=== PATIENT | female | born 1960 | race Caucasian/White ===

== ENCOUNTER 2021-08-19 20:15 | Inpatient (IN) | payer SELFPAY ==
[~2021-08-19] VITALS: Ht 157.5 cm; Wt 51.2 kg
[2021-08-19] MEDS ORDERED: IV NORMAL SALINE 1000ML BAG 1,000 ML IV SCH (20:30)
--- NOTE | 2021-08-19 20:34 | PHYS DOC ---
General Adult EDM: Chief Complaint: ANXIETY/PANIC ATTACK HPI: HPI: Patient is a 60 year old female who presents with here with dry mouth, cramping in her hands and feet, dry mouth, tingling in her hands. She was COVID-positive 1 week ago. She states this morning she was feeling fine and had lunch and then started feeling very anxious and having the symptoms. Denies focal weakness, chest pain, shortness of breath, fever, nausea, vomiting, diarrhea, nasal congestion, SI, HI, hallucinations. She states that she has had anxiety in the past but she has never had a panic attack like this. When answering questions the patient will stop midsentence and then asked me what I was asking her again. Review of Systems: Review of Systems: Constitutional: Denies fever or chills. [] Eyes: Denies change in visual acuity. [] HENT: Denies nasal congestion or sore throat. + Dry mouth [] Respiratory: Denies cough or shortness of breath. [] Cardiovascular: Denies chest pain or edema. [] GI: Denies abdominal pain, nausea, vomiting, bloody stools or diarrhea. [] : Denies dysuria. [] Musculoskeletal: Denies back pain or joint pain. + Cramping of hands and feet [] Integument: Denies rash. [] Neurologic: Denies headache, focal weakness or sensory changes. + Tingling in hands [] Endocrine: Denies polyuria or polydipsia. [] Lymphatic: Denies swollen glands. [] Psychiatric: Denies depression or +anxiety. + Panic attack [] Heart Score: C/O Chest Pain: No HEART Score for Chest Pain: HEART Score for Chest Pain Response (Comments) Value History Slighlty/Non-Suspicious 0 ECG Normal 0 Age >45 - < 65 1 Risk Factors 1 or 2 Risk Factors 1 Troponin < Normal Limit 0 Total 2 Risk Factors: Risk Factors: DM, Current or recent (<one month) smoker, HTN, HLP, family history of CAD, obesity. Risk Scores: Score 0 - 3: 2.5% MACE over next 6 weeks - Discharge Home Score 4 - 6: 20.3% MACE over next 6 weeks - Admit for Clinical Observation Score 7 - 10: 72.7% MACE over next 6 weeks - Early Invasive Strategies Current Medications: Current Medications Medications (Trade) Dose Ordered Sig/Otto Start Time Stop Time Status Last Admin Dose Admin Lorazepam (Ativan Inj) 0.5 mg 1X ONCE 08/19/21 20:30 08/19/21 20:31 UNV Sodium Chloride 1,000 ml @ 1,000 mls/hr Q1H 08/19/21 20:30 08/19/21 21:29 UNV Physical Exam: PE: Constitutional: Well developed, well nourished, no acute distress, non-toxic appearance. [] HENT: Normocephalic, atraumatic, bilateral external ears normal, oropharynx moist, no oral exudates, nose normal. [] Eyes: PERRLA, EOMI, conjunctiva normal, no discharge. [] Neck: Normal range of motion, no tenderness, supple, no stridor. [] Cardiovascular:Heart rate regular rhythm, no murmur [] Lungs & Thorax: Bilateral breath sounds clear to auscultation [] Abdomen: Bowel sounds normal, soft, no tenderness, no masses, no pulsatile masses. [] Skin: Warm, dry, no erythema, no rash. [] Back: No tenderness, no CVA tenderness. [] Extremities: No tenderness, no cyanosis, no clubbing, ROM intact, no edema. [] Neurologic: Alert and oriented X 3, normal motor function, normal sensory function, no focal deficits noted. [] Psychologic: Affect normal, judgement normal, mood normal. [] EKG: EK and read by Dr. Melendez as sinus rhythm but no STEMI. Radiology/Procedures: Radiology/Procedures: [] Impression: [facility] [address] [place] [address] IMAGING REPORT Signed PATIENT: KEILY MADDOX ACCOUNT: [id number] : 1960 LOCATION: ER AGE: 60 SEX: F EXAM STATUS: REG ER ORD. PHYSICIAN: MINNIE RODRIGUEZ APRN REASON: AMS, NOT FOLLOWING COMMANDS, NOT ANSWERING ALL QUESTIONS PROCEDURE: CT HEAD WO CONTRAST Exam: CT head INDICATION: Altered mental status TECHNIQUE: Sequential axial images through the head were obtained without the administration of IV contrast. Exposure: One or more of the following in the visualized dose reduction techniques were utilized for this examination: 1. Automated exposure control 2. Adjustment of the MA and/or KV according to patient size 3. Use of iterative of reconstructive technique Comparisons: None FINDINGS: No focal parenchymal lesion or hemorrhage is identified. There is no midline sh ift or sulcal effacement. No acute vascular territory infarction is identified. Ribeiro-white distinction is preserved. The ventricular system is within normal limits without compression hydrocephalus. The basal cisterns are well maintained. The visualized portions of the paranasal sinuses and mastoid air cells are well- pneumatized. No acute fractures. IMPRESSION: No acute intracranial abnormality. Electronically signed by: Jerrell Riggs MD (08/19/2021 9:16 PM) [facility] DICTATED and SIGNED BY: JERRELL RIGGS MD DATE: 08/19/212110 Course & Med Decision Making: Course & Med Decision Making Pertinent Labs and Imaging studies reviewed. (See chart for details) See HPI. Alert and oriented x4. Ambulatory steady gait. Speaks in full clear sentences. Will start to answer questions but then it seems she cannot get the words out or she forgets to question asked me the question again. She is shaking. She is moving around in the bed and trying to calm herself down. Cindy ngs are clear to auscultation all lobes. She cannot remember what medications she is on. She is moving all of her extremities equal to equal strength agrees. No nystagmus. PERRLA. Answers mostly questions appropriately and correctly. She can feel me touch her hands. She states she does have tingling. EMS states that when they got there she was breathing deeply and hyperventilating. Sodium is 117. She will get a total of 2 L of normal saline. I have called and spoken to Dr. Nichols for admission. He spoke to the patient and the patient stated that she did drink a lot of water. [] Dragon Disclaimer: Dragon Disclaimer: This electronic medical record was generated, in whole or in part, using a voice recognition dictation system. NIHSS Stroke Scale NIH Stroke Scale: NIH Stroke Scale Response (Comments) Value Level of Consciousness: 0 Alert/Responsive 0 LOC Questions: 0 Answers both correctly 0 LOC Commands: 0 Performs both tasks 0 Best Gaze: 0 Normal 0 Visual: 0 No visual loss 0 Facial Palsy: 0 Normal, symmetrical 0 Motor - Left Arm 0 No drift 0 Motor - Right Arm 0 No drift 0 Motor - Left Leg 0 No drift 0 Motor: Right Leg 0 No drift 0 Limb Ataxia: 0 Absent 0 Sensory: 0 No loss 0 Best Language: 0 Normal 0 Dysathria: 0 Normal 0 Extinction and Inattention: 0 Normal 0 Total 0 Departure Departure Impression: Primary Impression: AMS (altered mental status) Qualified Codes: R41.82 - Altered mental status, unspecified Additional Impressions: Hyponatremia COVID-19 Disposition: 09 ADMITTED INPATIENT Admitting Physician: ELHAM Condition: STABLE Referrals: NICKIE MONTANEZ (PCP) MINNIE RODRIGUEZ CORPORATE ANALYST August 19, 2021 20:34
[2021-08-19 20:40] LABS: BASO # 0.1 x10^3/uL (0.0-0.2); BASO % 1 % (0-3); EOS % 1 % (0-3); HEMATOCRIT 39.9 % (36.0-47.0); HEMOGLOBIN 14.4 g/dL (12.0-15.5); LYMPH # 1.8 x10^3/uL (1.0-4.8); LYMPH % 18 % (24-48); MEAN CORPUSCULAR HEMOGLOBIN 30 pg (25-35); MEAN CORPUSCULAR HGB CONC 36 g/dL (31-37); MEAN CORPUSCULAR VOLUME 83 fL (79-100); MONO # 0.7 x10^3/uL (0.0-1.1); MONO % 7 % (0-9); NEUT # 7.5 x10^3/uL (1.8-7.7); NEUT % 74 % (31-73); PLATELET COUNT 396 x10^3/uL (140-400); RED BLOOD COUNT 4.82 x10^6/uL (3.50-5.40); RED CELL DISTRIBUTION WIDTH 12.2 % (11.5-14.5); WHITE BLOOD COUNT 10.1 x10^3/uL (4.0-11.0)
--- NOTE | 2021-08-19 21:18 | RAD ---
Exam: CT head INDICATION: Altered mental status TECHNIQUE: Sequential axial images through the head were obtained without the administration of IV co ntrast. Exposure: One or more of the following in the visualized dose reduction techniques were utilized for this examination: 1. Automated exposure control 2. Adjustment of the MA and/or KV according to patient size 3. Use of iterative of reconstructive technique Comparisons: None FINDINGS: No focal parenchymal lesion or hemorrhage is identified. There is no midline shift or sulcal effaceme nt. No acute vascular territory infarction is identified. Ribeiro-white distinction is preserved. The ventricular system is within normal limits without compression hydrocephalus. The basal cisterns are well maintained. The visualized portions of the paranasal sinuses and mastoid air cells are well-pneumatized. No acute fractures. IMPRESSION: No acute intracranial abnormality. Electronically signed by: Jerrell Mahoney MD (08/19/2021 9:16 PM) [facility]
[2021-08-19 21:20] LABS: ALBUMIN/GLOBULIN RATIO 1.2 (1.0-1.7); CALCIUM 8.8 mg/dL (8.5-10.1); CREATININE 0.8 mg/dL (0.6-1.0); GFR 73.7; POTASSIUM 3.8 mmol/L (3.5-5.1); TOTAL PROTEIN 7.4 g/dL (6.4-8.2)
--- NOTE | 2021-08-19 21:52 | RAD ---
Exam: Chest one view INDICATION: Altered mental status, Covid positive TECHNIQUE: Frontal view of the chest Comparisons: None FINDINGS: The cardiomediastinal silhouette and pulmonary vessels are within normal limits. The lung and pleural spaces are clear. IMPRESSION: No acute cardiopulmonary process. Electronically signed by: Jerrell Mahoney MD (08/19/2021 9:50 PM) [facility]
[2021-08-19] MEDS ORDERED: ONDANSETRON PF 4 MG/2 ML VIAL. ONE (21:59)
[2021-08-19] MEDS ORDERED: IV NORMAL SALINE 1000ML BAG 1,000 ML IV ONE (22:00)
[2021-08-19 22:24] LABS: BACTERIA,URINE 0 /HPF (0-FEW); RBC,URINE 0 /HPF (0-2); WBC,URINE RARE /HPF (0-4)
[2021-08-19 22:26] LABS: BARBITURATES NEG (NEG); BENZODIAZEPINES NEG (NEG); CANNABINOIDS NEG (NEG); COCAINE NEG (NEG); METHADONE NEG (NEG); OPIATES NEG (NEG); PHENCYCLIDINE NEG (NEG)
[2021-08-19 22:27] LABS: AMPHETAMINE/METHAMPHETAMINE NEG (NEG)
[2021-08-19] MEDS ORDERED: ONDANSETRON PF 4 MG/2 ML VIAL. IVP ONE (22:30)
--- NOTE | 2021-08-19 23:21 | HP ---
DATE OF SERVICE: 08/19/2021 ADMIT DATE: 08/19/2021 CHIEF COMPLAINT: Anxiety and panic attack. HISTORY OF PRESENT ILLNESS: The patient is a pleasant 60-year-old female who has been fighting COVID-19 for the past week. She has been very anxious. I suspect she has been hyperventilating because she has got tingling in hands and lips and dry mouth. She also admits to me that she has been drinking a lot of fluids shortly after her sodium level is down to 117. I discussed the case with the ER physician. We are going to admit the patient, consult Nephrology and try to correct her electrolyte disturbance. PAST MEDICAL HISTORY: Recent COVID-19. ALLERGIES: SULFA. FAMILY HISTORY: Hypertension. SOCIAL HISTORY: She does not drink, smoke or take drugs. MEDICATIONS: Reviewed. She has no home medications listed. REVIEW OF SYSTEMS: Difficult to obtain. She cannot talk much. PHYSICAL EXAMINATION: VITALS: Within normal limits and are stable. GENERAL: No apparent distress. Alert and oriented. HEENT: Normal cephalic atraumatic, external auditory canals are patent. EYES: Extraocular muscles are intact, pupils are equally round and reactive to light and accommodation. MUSCULOSKELETAL: Well developed, well nourished, good range of motion. ENDOCRINE: No thyromegaly was palpated. LYMPHATICS: No cervical chain or axillary nodes were noted. HEMATOPOIETIC: No bruising. NECK: Supple, no JVD, no thyromegaly was noted. LUNGS: Clear to auscultation in all lung dobbins without rhonchi or wheezing. HEART: RRR, S1, S2 present. Peripheral pulses intact, no obvious murmurs were noted. ABDOMEN: Soft, nontender. Positive bowel sounds no organomegaly, normal bowel sounds. EXTREMITIES: Without any cyanosis, clubbing, or edema. Pedal pulses intact, Homans sign is negative. NEUROLOGIC: She is very weak, although she was able to clearly state to me that she did drink too much fluid and a lot of water. PSYCHIATRIC: Normal affect, normal mood. Stable. SKIN: No ulcerations or rashes, good skin turgor, no jaundice. VASCULAR: Good capillary refill, neurovascular bundle appears to be intact. DIAGNOSTIC STUDIES: Chest x-ray, no acute changes. CT of the head, no acute changes. 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 The patient has been admitted. We will start normal saline. Consult Nephrology. Trend her labs. Home meds. Deep venous thrombosis prophylaxis. Full code. Luz Callejas. SHAKEEL/JESSI/LIZA DR: Pedro TID: [id number]
[2021-08-19 23:45] VITALS: BP 134/82
--- NOTE | 2021-08-20 01:25 | EKG ---
[facility] [address] [place] [address] Test Date: 2021-08-19 Test Time: 21:17:31 Pat Name: KEILY MADDOX Department: Room: 528 Gender: F Plc Engineer: : 1960 Requested By: MINNIE RODRIGUEZ Order Number: [id number] Reading MD: Neno Bolivar Measurements Intervals Jackson Rate: 83 P: RI: QRS: 59 QRSD: 80 T: 64 QT: 398 QTc: 474 Interpretive Statements ATRIAL FLUTTER NON SPECIFIC ST-T WAVE CHANGES Electronically Signed On 08-21-2021 11:07:23 CDT by Neno Bolivar
[2021-08-20] MEDS ORDERED: IV NORMAL SALINE 1000ML BAG 1,000 ML IV ONE (02:15)
[2021-08-20 03:00] VITALS: BP 120/71
[2021-08-20 07:00] VITALS: BP 133/87
[2021-08-20 11:00] VITALS: BP 134/81
[2021-08-20 13:00] LABS: THYROID STIM HORMONE (TSH) 1.125 uIU/mL (0.358-3.74)
[2021-08-20] MEDS ORDERED: ONDANSETRON PF 4 MG/2 ML VIAL. IVP PRN (13:00)
[2021-08-20 13:25] LABS: FREE T4 1.61 ng/dL (0.76-1.46)
[2021-08-20 15:00] VITALS: BP 138/89
[2021-08-20] MEDS: IV NORMAL SALINE 1000ML BAG 1,000 ML IV SCH (16:35)
[2021-08-20 19:00] VITALS: BP 125/75
--- NOTE | 2021-08-20 19:10 | PDOC ---
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 The patient has been admitted. We will start normal saline. Consult Nephrology. Trend her labs. Home meds. Deep venous thrombosis prophylaxis. Full code. P.r.aleyda Stubbs History of Present Illness History of Present Illness 08/20 Patient evaluated examined at bedside. Still a bit altered. Continue to trend electrolytes. Urine osm and morning cortisol ordered per nephrology; did inform that Cortisol needs to be drawn as close to 8AM as possible. Otherwise continue current. Nephrology recommendations reviewed. T4 only mildly elevated; hold off on any PTU or methimazole for now. Discussed with bedside RN Vitals/I&O Vitals/I&O: Vital Signs Date Time Temp Pulse Resp B/P (MAP) Pulse Ox O2 Delivery O2 Flow Rate FiO2 08/20/21 15:00 98.4 76 20 138/89 (105) 99 Room Air 98.4 Physical Exam General: Alert, Cooperative Heart: Regular rate, Normal S1, Normal S2 Lungs: Clear Abdomen: Normal bowel sounds, Soft, No tenderness Extremities: No edema, Normal pulses Skin: No significant lesion Labs Labs: Laboratory Tests Test 08/19/21 20:30 08/19/21 20:45 08/19/21 22:15 White Blood Count 10.1 x10^3/uL (4.0-11.0) Red Blood Count 4.82 x10^6/uL (3.50-5.40) Hemoglobin 14.4 g/dL (12.0-15.5) Hematocrit 39.9 % (36.0-47.0) Mean Corpuscular Volume 83 fL (79-100) Mean Corpuscular Hemoglobin 30 pg (25-35) Mean Corpuscular Hemoglobin Concent 36 g/dL (31-37) Red Cell Distribution Width 12.2 % (11.5-14.5) Platelet Count 396 x10^3/uL (140-400) Neutrophils (%) (Auto) 74 % (31-73) Lymphocytes (%) (Auto) 18 % (24-48) Monocytes (%) (Auto) 7 % (0-9) Eosinophils (%) (Auto) 1 % (0-3) Basophils (%) (Auto) 1 % (0-3) Neutrophils # (Auto) 7.5 x10^3/uL (1.8-7.7) Lymphocytes # (Auto) 1.8 x10^3/uL (1.0-4.8) Monocytes # (Auto) 0.7 x10^3/uL (0.0-1.1) Eosinophils # (Auto) 0.0 x10^3/uL (0.0-0.7) Basophils # (Auto) 0.1 x10^3/uL (0.0-0.2) Sodium Level 117 mmol/L (136-145) Potassium Level 3.8 mmol/L (3.5-5.1) Chloride Level 81 mmol/L (98-107) Carbon Dioxide Level 19 mmol/L (21-32) Anion Gap 17 (6-14) Blood Urea Nitrogen 10 mg/dL (7-20) Creatinine 0.8 mg/dL (0.6-1.0) Estimated GFR (Cockcroft-Gault) 73.7 BUN/Creatinine Ratio 13 (6-20) Glucose Level 156 mg/dL (70-99) Calcium Level 8.8 mg/dL (8.5-10.1) Magnesium Level 1.6 mg/dL (1.8-2.4) Total Bilirubin 2.0 mg/dL (0.2-1.0) Aspartate Amino Transf (AST/SGOT) 23 U/L (15-37) Alanine Aminotransferase (ALT/SGPT) 42 U/L (14-59) Alkaline Phosphatase 42 U/L (46-116) Troponin I High Sensitivity 5 ng/L (4-50) Total Protein 7.4 g/dL (6.4-8.2) Albumin 4.0 g/dL (3.4-5.0) Albumin/Globulin Ratio 1.2 (1.0-1.7) Thyroid Stimulating Hormone (TSH) 1.125 uIU/mL (0.358-3.74) Free Thyroxine 1.61 ng/dL (0.76-1.46) Ethyl Alcohol Level < 10 mg/dL (0-10) Creatine Kinase 40 U/L (26-192) Urine Collection Type Unknown Urine Color (Auto) Light yellow Urine Turbidity Clear Urine pH (Auto) 7.5 (<5.0-8.0) Urine Specific [place] 1.008 (1.000-1.030) Urine Protein (Auto) Negative mg/dL (Negative) Urine Glucose (Auto)(UA) 200 mg/dL (Negative) Urine Ketones (Auto) 20 mg/dL (Negative) Urine Blood (Auto) Negative (Negative) Urine Nitrite Negative (Negative) Urine Bilirubin (Auto) Negative (Negative) Urine Urobilinogen (Auto) Normal mg/dL (Normal) Urine Leukocyte Esterase (Auto) Negative (Negative) Urine RBC 0 /HPF (0-2) Urine WBC Rare /HPF (0-4) Urine Squamous Epithelial Cells Few /LPF Urine Bacteria 0 /HPF (0-FEW) Urine Opiates Screen Neg (NEG) Urine Methadone Screen Neg (NEG) Urine Barbiturates Neg (NEG) Urine Phencyclidine Screen Neg (NEG) Urine Amphetamine/Methamphetamine Neg (NEG) Urine Benzodiazepines Screen Neg (NEG) Urine Cocaine Screen Neg (NEG) Urine Cannabinoids Screen Neg (NEG) Urine Ethyl Alcohol Neg (NEG) Assessment and Plan Assessmemt and Plan Problems Medical Problems: (1) AMS (altered mental status) Status: Acute (2) COVID-19 Status: Acute (3) Hyponatremia Status: Acute Comment Review of Relevant I have reviewed the following items shonna (where applicable) has been applied. Medications: Current Medications Medications (Trade) Dose Ordered Sig/Otto Route PRN Reason Start Time Stop Time Status Last Admin Dose Admin Sodium Chloride 1,000 ml @ 1,000 mls/hr Q1H IV 08/19/21 20:30 08/19/21 21:29 DC 08/19/21 20:30 Lorazepam (Ativan Inj) 0.5 mg 1X ONCE IVP 08/19/21 20:30 08/19/21 20:48 DC 08/19/21 20:42 Sodium Chloride 1,000 ml @ 1,000 mls/hr 1X ONCE IV 08/19/21 22:00 08/19/21 22:59 DC 08/19/21 22:11 Ondansetron HCl (Zofran) 4 mg 1X ONCE IVP 08/19/21 22:30 08/19/21 22:31 DC 08/19/21 22:07 Lorazepam (Ativan Inj) 1 mg PRN Q4HRS PRN IVP ANXIETY / AGITATION 08/20/21 02:15 08/20/21 02:20 Sodium Chloride 1,000 ml @ 75 mls/hr 1X ONCE IV 08/20/21 02:15 08/20/21 15:34 DC 08/20/21 02:21 Ondansetron HCl (Zofran) 4 mg PRN Q6HRS PRN IVP NAUSEA/VOMITING 08/20/21 13:00 08/20/21 12:53 Sodium Chloride 1,000 ml @ 75 mls/hr [id number] IV 08/20/21 14:15 08/20/21 16:35 Justifications for Admission Other Justification LARA ROMERO MD August 20, 2021 19:10
[2021-08-20] MEDS ORDERED: MAGNESIUM SULFATE 2GM 50 ML IV ONE (19:15)
--- NOTE | 2021-08-20 21:31 | CONS ---
DATE OF CONSULTATION: 08/20/2021 NEPHROLOGY CONSULTATION REQUESTING PHYSICIAN: Hospitalist. REASON FOR CONSULTATION: Hyponatremia. HISTORY OF PRESENT ILLNESS: This is a 60-year-old female who presents with COVID-19 approximately 1 week duration. She is found to have serum sodium of 117. As such, Nephrology evaluation is requested. MEDICATIONS: She does not use medications at home. PAST MEDICAL HISTORY: Has no underlying chronic conditions. SOCIAL HISTORY: She is a nonsmoker. REVIEW OF SYSTEMS: Other than history of present illness, not obtained due to COVID-19 status. PHYSICAL EXAMINATION: Due to COVID-19 positive status, bedside examination not pursued. IMAGING: Chest x-ray, no acute process. CT head, no acute process. LABORATORY DATA: Hemoglobin 14.1, hematocrit 39.9, white count 10.1. Sodium 117, potassium 3.8, chloride 81, CO2 of 19, BUN 10, creatinine 0.8. Urine, specific gravity 1.008. IMPRESSION: Hyponatremia -- currently in the setting of COVID-19 infection. Also, has had enhanced fluid intake. PLAN: The patient currently is on isotonic saline. Diagnostic studies include serum and urine osmolality, a.m. cortisol, free T4 and TSH to be obtained. Trend labs. BETTY DR: Margaret TID: [id number]
[2021-08-21 03:00] VITALS: BP 121/68
[2021-08-21] MEDS: IV NORMAL SALINE 1000ML BAG 1,000 ML IV SCH (05:42)
[2021-08-21 07:00] VITALS: BP 118/70
[2021-08-21 08:01] LABS: ALBUMIN 3.1 g/dL (3.4-5.0); CALCIUM 7.7 mg/dL (8.5-10.1); CREATININE 0.7 mg/dL (0.6-1.0); GFR 85.9; POTASSIUM 3.5 mmol/L (3.5-5.1); TOTAL BILIRUBIN 2.1 mg/dL (0.2-1.0); TOTAL PROTEIN 6.1 g/dL (6.4-8.2)
--- NOTE | 2021-08-21 10:02 | PDOC ---
DATE OF SERVICE DATE: 08/21/21 TIME: 10:01 SUBJECTIVE ROS No complaints. States doing well except for some sinus congestion OBJECTIVE Vital Signs Vital Signs Date Time Temp Pulse Resp B/P (MAP) Pulse Ox O2 Delivery O2 Flow Rate FiO2 08/21/21 07:00 97.9 57 17 118/70 (86) 100 Room Air 97.9 I & 0 Intake and Output 08/21/21 07:00 Intake Total 2430 ml Balance 2430 ml Intake Oral 480 ml IV Total 1950 ml # Voids 4 PHYSICAL EXAM Physical Exam General NAD HEEN OM moist Nek suple Lungs CTA, Non labored CV S1S2 Abd sodt, NT, BS + Ext No LE edema Skin No Rash No nunes DIAGNOSIS/ASSESSMENT Assessment & Plan HypoNatremia -POA -resolved ;No significant PMHx. Reports increased fluid intake trying to keep hydrated due to Dx of COVID . TSH normal, T4 mildly elevated. Defer to primary. Cortisol normal . FU Labs with PCP after dc . Defer dc to primary COVID 19 COMMENT/RELEVANT DATA Meds Current Medications Medications (Trade) Dose Ordered Sig/Otto Start Time Stop Time Status Last Admin Dose Admin Lorazepam (Ativan Inj) 1 mg PRN Q4HRS PRN 08/20/21 02:15 08/20/21 02:20 1 MG Magnesium Sulfate 50 ml @ 25 mls/hr 1X ONCE 08/20/21 19:15 08/20/21 21:14 DC 08/20/21 19:53 25 MLS/HR Ondansetron HCl (Zofran) 4 mg PRN Q6HRS PRN 08/20/21 13:00 08/20/21 12:53 4 MG Sodium Chloride 1,000 ml @ 75 mls/hr [id number] 08/20/21 14:15 08/21/21 05:42 75 MLS/HR Lab Laboratory Tests Test 08/21/21 07:05 Sodium Level 138 mmol/L (136-145) Potassium Level 3.5 mmol/L (3.5-5.1) Chloride Level 106 mmol/L (98-107) Carbon Dioxide Level 25 mmol/L (21-32) Anion Gap 7 (6-14) Blood Urea Nitrogen 7 mg/dL (7-20) Creatinine 0.7 mg/dL (0.6-1.0) Estimated GFR (Cockcroft-Gault) 85.9 BUN/Creatinine Ratio 10 (6-20) Glucose Level 88 mg/dL (70-99) Calcium Level 7.7 mg/dL (8.5-10.1) Total Bilirubin 2.1 mg/dL (0.2-1.0) Aspartate Amino Transf (AST/SGOT) 15 U/L (15-37) Alanine Aminotransferase (ALT/SGPT) 30 U/L (14-59) Alkaline Phosphatase 31 U/L (46-116) Total Protein 6.1 g/dL (6.4-8.2) Albumin 3.1 g/dL (3.4-5.0) Albumin/Globulin Ratio 1.0 (1.0-1.7) Cortisol AM Sample 21.5 ug/dL (4.3-22.4) Results All relevant outside records, renal labs, imaging studies, telemetry/EKG's were reviewed. Justicifation of Admission Dx: Justifications for Admission: Justification of Admission Dx: Yes Chronic Renal Failure: Electrolyte Abnormality GERARD HUERTA MD August 21, 2021 10:02
[2021-08-21 11:00] VITALS: BP 126/86
--- NOTE | 2021-08-21 13:33 | NUR ---
SS following for discharge planning. SS reviewed pt chart and discussed with pt RN. Pt is from home alone and is currently on room air. Nephrology following. Self pay. [facility] [employer] following. SS will continue to follow for discharge planning.
[2021-08-21 15:00] VITALS: BP 111/83
--- NOTE | 2021-08-21 15:52 | PDOC ---
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 The patient has been admitted. We will start normal saline. Consult Nephrology. Trend her labs. Home meds. Deep venous thrombosis prophylaxis. Full code. P.r.laeyda Stubbs History of Present Illness History of Present Illness 08/21: Patient seen and evaluated. Sodium 138 today. She denies any weakness. She will discharge home and continue her self quarantine. Free T4 mildly elevated secondary to estrogen use. Greater than 30 minutes spent managing discharge this patient. 08/20 Patient evaluated examined at bedside. Still a bit altered. Continue to trend electrolytes. Urine osm and morning cortisol ordered per nephrology; did inform that Cortisol needs to be drawn as close to 8AM as possible. Otherwise continue current. Nephrology recommendations reviewed. T4 only mildly elevated; hold off on any PTU or methimazole for now. Discussed with bedside RN Vitals/I&O Vitals/I&O: Vital Signs Date Time Temp Pulse Resp B/P (MAP) Pulse Ox O2 Delivery O2 Flow Rate FiO2 08/21/21 11:00 99.0 70 17 126/86 (99) 98 Room Air 99.0 I & O 08/20/21 08/20/21 08/21/21 15:00 23:00 07:00 Intake Total 240 ml 1190 ml 1000 ml Balance 240 ml 1190 ml 1000 ml Physical Exam General: Alert, Cooperative Heart: Regular rate, Normal S1, Normal S2 Lungs: Clear Abdomen: Normal bowel sounds, Soft, No tenderness Extremities: No edema, Normal pulses Skin: No significant lesion Labs Labs: Laboratory Tests Test 08/21/21 07:05 Sodium Level 138 mmol/L (136-145) Potassium Level 3.5 mmol/L (3.5-5.1) Chloride Level 106 mmol/L (98-107) Carbon Dioxide Level 25 mmol/L (21-32) Anion Gap 7 (6-14) Blood Urea Nitrogen 7 mg/dL (7-20) Creatinine 0.7 mg/dL (0.6-1.0) Estimated GFR (Cockcroft-Gault) 85.9 BUN/Creatinine Ratio 10 (6-20) Glucose Level 88 mg/dL (70-99) Calcium Level 7.7 mg/dL (8.5-10.1) Total Bilirubin 2.1 mg/dL (0.2-1.0) Aspartate Amino Transf (AST/SGOT) 15 U/L (15-37) Alanine Aminotransferase (ALT/SGPT) 30 U/L (14-59) Alkaline Phosphatase 31 U/L (46-116) Total Protein 6.1 g/dL (6.4-8.2) Albumin 3.1 g/dL (3.4-5.0) Albumin/Globulin Ratio 1.0 (1.0-1.7) Cortisol AM Sample 21.5 ug/dL (4.3-22.4) Assessment and Plan Assessmemt and Plan Problems Medical Problems: (1) AMS (altered mental status) Status: Acute (2) COVID-19 Status: Acute (3) Hyponatremia Status: Acute Comment Review of Relevant I have reviewed the following items shonna (where applicable) has been applied. Medications: Current Medications Medications (Trade) Dose Ordered Sig/Otto Route PRN Reason Start Time Stop Time Status Last Admin Dose Admin Magnesium Sulfate 50 ml @ 25 mls/hr 1X ONCE IV 08/20/21 19:15 08/20/21 21:14 DC 08/20/21 19:53 Justifications for Admission Other Justification WESLY YOST MD August 21, 2021 15:51
--- NOTE | 2021-08-21 15:55 | PDOC3 ---
Discharge Summary Visit Information Date of Admission: August 19, 2021 Date of Discharge: August 21, 2021 Final Diagnosis Problems Medical Problems: (1) AMS (altered mental status) Status: Acute (2) COVID-19 Status: Acute (3) Hyponatremia Status: Acute Brief Hospital Course Allergies Allergies Coded Allergies Type Severity Reaction Last Updated Verified Sulfa (Sulfonamide Antibiotics) Allergy Intermediate 08/19/21 Yes Vital Signs Vital Signs Date Time Temp Pulse Resp B/P (MAP) Pulse Ox O2 Delivery O2 Flow Rate FiO2 08/21/21 11:00 99.0 70 17 126/86 (99) 98 Room Air 99.0 Lab Results Laboratory Tests Test 08/19/21 20:30 08/19/21 20:45 08/19/21 22:15 08/21/21 07:05 White Blood Count 10.1 x10^3/uL (4.0-11.0) Red Blood Count 4.82 x10^6/uL (3.50-5.40) Hemoglobin 14.4 g/dL (12.0-15.5) Hematocrit 39.9 % (36.0-47.0) Mean Corpuscular Volume 83 fL (79-100) Mean Corpuscular Hemoglobin 30 pg (25-35) Mean Corpuscular Hemoglobin Concent 36 g/dL (31-37) Red Cell Distribution Width 12.2 % (11.5-14.5) Platelet Count 396 x10^3/uL (140-400) Neutrophils (%) (Auto) 74 % (31-73) Lymphocytes (%) (Auto) 18 % (24-48) Monocytes (%) (Auto) 7 % (0-9) Eosinophils (%) (Auto) 1 % (0-3) Basophils (%) (Auto) 1 % (0-3) Neutrophils # (Auto) 7.5 x10^3/uL (1.8-7.7) Lymphocytes # (Auto) 1.8 x10^3/uL (1.0-4.8) Monocytes # (Auto) 0.7 x10^3/uL (0.0-1.1) Eosinophils # (Auto) 0.0 x10^3/uL (0.0-0.7) Basophils # (Auto) 0.1 x10^3/uL (0.0-0.2) Sodium Level 117 mmol/L (136-145) 138 mmol/L (136-145) Potassium Level 3.8 mmol/L (3.5-5.1) 3.5 mmol/L (3.5-5.1) Chloride Level 81 mmol/L (98-107) 106 mmol/L (98-107) Carbon Dioxide Level 19 mmol/L (21-32) 25 mmol/L (21-32) Anion Gap 17 (6-14) 7 (6-14) Blood Urea Nitrogen 10 mg/dL (7-20) 7 mg/dL (7-20) Creatinine 0.8 mg/dL (0.6-1.0) 0.7 mg/dL (0.6-1.0) Estimated GFR (Cockcroft-Gault) 73.7 85.9 BUN/Creatinine Ratio 13 (6-20) 10 (6-20) Glucose Level 156 mg/dL (70-99) 88 mg/dL (70-99) Calcium Level 8.8 mg/dL (8.5-10.1) 7.7 mg/dL (8.5-10.1) Magnesium Level 1.6 mg/dL (1.8-2.4) Total Bilirubin 2.0 mg/dL (0.2-1.0) 2.1 mg/dL (0.2-1.0) Aspartate Amino Transf (AST/SGOT) 23 U/L (15-37) 15 U/L (15-37) Alanine Aminotransferase (ALT/SGPT) 42 U/L (14-59) 30 U/L (14-59) Alkaline Phosphatase 42 U/L (46-116) 31 U/L (46-116) Troponin I High Sensitivity 5 ng/L (4-50) Total Protein 7.4 g/dL (6.4-8.2) 6.1 g/dL (6.4-8.2) Albumin 4.0 g/dL (3.4-5.0) 3.1 g/dL (3.4-5.0) Albumin/Globulin Ratio 1.2 (1.0-1.7) 1.0 (1.0-1.7) Thyroid Stimulating Hormone (TSH) 1.125 uIU/mL (0.358-3.74) Free Thyroxine 1.61 ng/dL (0.76-1.46) Ethyl Alcohol Level < 10 mg/dL (0-10) Creatine Kinase 40 U/L (26-192) Urine Collection Type Unknown Urine Color (Auto) Light yellow Urine Turbidity Clear Urine pH (Auto) 7.5 (<5.0-8.0) Urine Specific [place] 1.008 (1.000-1.030) Urine Protein (Auto) Negative mg/dL (Negative) Urine Glucose (Auto)(UA) 200 mg/dL (Negative) Urine Ketones (Auto) 20 mg/dL (Negative) Urine Blood (Auto) Negative (Negative) Urine Nitrite Negative (Negative) Urine Bilirubin (Auto) Negative (Negative) Urine Urobilinogen (Auto) Normal mg/dL (Normal) Urine Leukocyte Esterase (Auto) Negative (Negative) Urine RBC 0 /HPF (0-2) Urine WBC Rare /HPF (0-4) Urine Squamous Epithelial Cells Few /LPF Urine Bacteria 0 /HPF (0-FEW) Urine Opiates Screen Neg (NEG) Urine Methadone Screen Neg (NEG) Urine Barbiturates Neg (NEG) Urine Phencyclidine Screen Neg (NEG) Urine Amphetamine/Methamphetamine Neg (NEG) Urine Benzodiazepines Screen Neg (NEG) Urine Cocaine Screen Neg (NEG) Urine Cannabinoids Screen Neg (NEG) Urine Ethyl Alcohol Neg (NEG) Cortisol AM Sample 21.5 ug/dL (4.3-22.4) Laboratory Tests Test 08/21/21 07:05 Sodium Level 138 mmol/L (136-145) Potassium Level 3.5 mmol/L (3.5-5.1) Chloride Level 106 mmol/L (98-107) Carbon Dioxide Level 25 mmol/L (21-32) Anion Gap 7 (6-14) Blood Urea Nitrogen 7 mg/dL (7-20) Creatinine 0.7 mg/dL (0.6-1.0) Estimated GFR (Cockcroft-Gault) 85.9 BUN/Creatinine Ratio 10 (6-20) Glucose Level 88 mg/dL (70-99) Calcium Level 7.7 mg/dL (8.5-10.1) Total Bilirubin 2.1 mg/dL (0.2-1.0) Aspartate Amino Transf (AST/SGOT) 15 U/L (15-37) Alanine Aminotransferase (ALT/SGPT) 30 U/L (14-59) Alkaline Phosphatase 31 U/L (46-116) Total Protein 6.1 g/dL (6.4-8.2) Albumin 3.1 g/dL (3.4-5.0) Albumin/Globulin Ratio 1.0 (1.0-1.7) Cortisol AM Sample 21.5 ug/dL (4.3-22.4) Brief Hospital Course Ms. Nails is a 60 old female who presented with hyponatremia. She was known COVID-positive on admission. Her TSH was normal but her free T4 was slightly elevated at 1.61, secondary to estrogen use. Sodium came back with treatment to 138 and symptoms resolved. She will discharged home to continue self quarant ine. Discharge Information Condition at Discharge: Improved Disposition/Orders: D/C to Home Justicifation of Admission Dx: Justifications for Admission: Justification of Admission Dx: Yes Chronic Renal Failure: Electrolyte Abnormality WESLY YOST MD August 21, 2021 15:55
--- NOTE | 2021-08-21 17:30 | NUR ---
DISCHARGE INSTRUCTIONS GIVEN, QUESTIONS AND CONCERNS ANSWERED, PATIENT VERBALIZED UNDERSTANDING OF DISCHARGE INFORMATION INCLUDING TAKING ALL MEDICATIONS INSTRUCTED AND FOLLOWING UP WITH HER PRIMARY PROVIDER IN 1-2 WEEKS. ALL PERSONAL BELONGINGS GATHERED BY THE PATIENT AND PLACED IN BAGS FOR DISCHARGE/ SALINE LOCK REMOVED FROM PATIENTS' RIGHT AC PER NEWS PRODUCTION ASSISTANT.
--- NOTE | 2021-08-21 17:47 | NUR ---
PATIENT LEAVES THE UNIT PER W/C AND ACCOMPANIED BY THIS FOOD SERVICE TRAY ATTENDANT, EMOTIONAL SUPPORT GIVEN, FOLLOW UP APPOINTMENTS ENCOURAGED.
== END 2021-08-21 17:47 | disposition home or self-care (01) | DRG 640 ==
LOC: ER 20:15 → 5 NORTH 21:52
PROVIDERS: ADMIT Internal Medicine; ATTEND Internal Medicine
DX: E87.1 Hypo-osmolality and hyponatremia (principal); U07.1 COVID-19; R63.1 Polydipsia; F41.0 Panic disorder [episodic paroxysmal anxiety]; N18.9 Chronic kidney disease, unspecified; Z79.890 Hormone replacement therapy; Z82.49 Family history of ischemic heart disease and other diseases of the circulatory system; Z88.2 Allergy status to sulfonamides
CPT/HCPCS: 36415; 70450; 71045; 80053; 80307; 81001; 82533; 82550; 83735; 83930; 83935; 84439; 84443; 84484; 85025; 93005; 96361; 96374; 96375; G0480; J2060; J2405; J3475; J7030; 99285-25; G0378